=== PATIENT | male | born 1975 | race Caucasian/White ===

== ENCOUNTER 2018-09-16 20:33 | Emergency (ER) | payer MEDICAID, OTHER ==
--- NOTE | 2018-09-16 21:10 | ED Physician Documentation ---
History of Present Illness - Stated complaint Stated Complaint: SWOLLEN FOOT - Chief complaint Chief Complaint: Ext Problem - History obtained from History obtained from: Patient, Family - History of Present Illness Timing: How many days ago (4) - Additonal information Additional information: 42-year old male previously well was wearing a pair of work boots when he stepped on a fresh nail at the work site. He states he had to pull the nail out of his boot and it was deeply embedded into the distal portion of his foot. He continued to work and he has continued to ambulate until yesterday when swelling increased pain increased and today he is having a lot of trouble walking because of the pain and swelling. He comes now to the emergency department with a swollen left foot and a distal sole puncture wound between metatarsals #2 and 3. He has swelling up to the high portion of his ankle with some erythema and no lymphangitic streaking or fever. He has had a prior deep space infection in the finger. Review of Systems Constitutional: denies: Fever, Chills Eyes: denies: Decreased vision Ears: denies: Ear pain Nose: denies: Congestion Respiratory: denies: Dyspnea, Cough GI: denies: Vomiting Skin: denies: Rash Musculoskeletal: reports: Extremity pain, Extremity swelling, Pain with weight bearing. denies: Neck pain, Back pain Neurologic: denies: Generalized weakness, Focal weakness, Numbness PD PAST MEDICAL HISTORY - Past Medical History Past Medical History: Yes Cardiovascular: None Respiratory: None Neuro: None Endocrine/Autoimmune: None GI: None : None HEENT: None Psych: None Musculoskeletal: None Derm: None - Past Surgical History Past Surgical History: Yes Ortho: Other - Present Medications Home Medications: Ambulatory Orders Medication Instructions Recorded Confirmed Clindamycin HCl 300 mg PO Q6H #19 capsule 05/18/13 Oxycodone HCl/Acetaminophen 1 each PO TID PRN #20 tablet 05/18/13 [Oxycodone-Acetaminophen 10-325] Ciprofloxacin HCl [Cipro] 500 mg PO BID #14 tablet 09/17/18 Hydrocodone/Acetaminophen 1 - 2 each PO Q6H PRN #14 tablet 09/17/18 [Hydrocodon-Acetaminophen 5-325] Sulfamethoxazole/Trimethoprim 1 each PO BID #14 tablet 09/17/18 [Sulfamethoxazole-Tmp Ds Tablet] - Allergies Allergies/Adverse Reactions: Allergies Allergy/AdvReac Type Severity Reaction Status Date / Time Penicillins AdvReac Intermediate Rash Verified 05/17/13 23:17 - Social History Does the pt smoke?: Yes Smoking Status: Current every day smoker Does the pt drink ETOH?: No Does the pt have substance abuse?: Yes Substance Use and Type: Marijuana - Immunizations Immunizations are current?: Yes - POLST Patient has POLST: No PD ED PE NORMAL - Vitals Vital signs reviewed: Yes (afebrile and hypertensive ) - General General: Alert and oriented X 3, No acute distress, Well developed/nourished - HEENT HEENT: Atraumatic, PERRL, EOMI - Neck Neck: Supple, no meningeal sign - Respiratory Respiratory: No respiratory distress - Derm Derm: Normal color, Warm and dry, No rash - Extremities Extremities: Other (The left foot is markedly swollen. The PW site is over the distal #2/3 metatarsal area and the wound is non-disript appears healed/sealed. There is tenderness to the PW site swelling of the dorsum of the foot and the swelling encompasses the entire foot to the distal calf with mild erythema and warmth. distal n/v is intact. ) - Neuro Neuro: Alert and oriented X 3, coarse wire drawer 2-12 intact, No motor deficit, No sensory deficit, Normal speech Eye Opening: Spontaneous Motor: Obeys Commands Verbal: Oriented GCS Score: 15 - Psych Psych: Normal mood, Normal affect Results - Vitals Vitals: Vital Signs - 24 hr 09/16/18 20:39 Temperature 37.0 C Heart Rate 95 Respiratory 16 Rate Blood Pressure 151/73 H O2 Saturation 98 Oxygen O2 Source Room air - Labs Labs: Laboratory Tests 09/16/18 09/16/18 09/16/18 21:10 21:10 21:10 WBC 7.8 RBC 4.20 L Hgb 13.0 L Hct 40.0 L MCV 95.2 H MCH 31.0 MCHC 32.5 RDW 12.6 Plt Count 246 MPV 8.7 Neut # (Auto) 4.3 Lymph # (Auto) 2.8 [place] # (Auto) 0.5 Eos # (Auto) 0.2 Baso # (Auto) 0.0 Absolute Nucleated RBC 0.00 Nucleated RBC % 0.0 ESR 19 H Sodium 139 Potassium 3.8 Chloride 108 Carbon Dioxide 22 Anion Gap 9.0 BUN 23 H Creatinine 1.0 Estimated GFR (MDRD) 82 L Glucose 104 H Calcium 9.2 Total Bilirubin 0.5 AST 18 ALT 20 Alkaline Phosphatase 50 Total Protein 7.2 Albumin 3.8 Globulin 3.4 Albumin/Globulin Ratio 1.1 Lipase 43 - Rads (name of study) foot Radiology: Prelim report reviewed (Impression: No acute radiographic abnormalities.), EMP read indepedently, See rad report PD MEDICAL DECISION MAKING - ED course Complexity details: reviewed old records, reviewed results, re-evaluated patient, considered differential, d/w patient, d/w family Departure - Departure Disposition: 01 Home, Self Care Clinical Impression: Puncture wound of plantar aspect of left foot with infection Qualifiers: Encounter type: initial encounter Qualified Code(s): S91.332A - Puncture wound without foreign body, left foot, initial encounter Condition: Stable Instructions: ED Wound Puncture Foot Follow-Up: [facility] [Provider Group] Prescriptions: Ciprofloxacin HCl [Cipro] 500 mg PO BID #14 tablet Hydrocodone/Acetaminophen [Hydrocodon-Acetaminophen 5-325] 1 - 2 each PO Q6H PRN #14 tablet PRN Reason: pain Sulfamethoxazole/Trimethoprim [Sulfamethoxazole-Tmp Ds Tablet] 1 each PO BID #14 tablet Forms: Activity restrictions
[2018-09-16] MEDS ORDERED: TETANUS/DIPHTHERIA/PERTUSSIS 0.5 ML SYRINGE IM ONE (21:15)
[2018-09-16 21:17] LABS: BASOPHILS % (AUTO) 0.4 %; EOSINOPHILS # (AUTO) 0.2 10^3/uL (0.0-0.7); EOSINOPHILS % (AUTO) 2.8 %; LYMPHOCYTES # (AUTO) 2.8 10^3/uL (1.5-3.5); LYMPHOCYTES % (AUTO) 35.8 %; MEAN CORPUSCULAR HGB CONC 32.5 g/dL (32.0-36.0); MEAN CORPUSCULAR VOLUME 95.2 fL (80.0-94.0); MEAN PLATELET VOLUME 8.7 fL (7.4-11.4); MONOCYTES # (AUTO) 0.5 10^3/uL (0.0-1.0); NEUTROPHILS # (AUTO) 4.3 10^3/uL (1.5-6.6); NEUTROPHILS % (AUTO) 54.6 %; PLT - PLATELET COUNT 246 10^3/uL (130-450); RED CELL DISTRIBUTION WIDTH 12.6 % (12.0-15.0); WHITE BLOOD COUNT 7.8 x10^3/uL (4.8-10.8)
[2018-09-16 21:31] LABS: ALBUMIN 3.8 g/dL (3.2-5.5); ALBUMIN/GLOBULIN RATIO 1.1 (1.0-2.2); BILIRUBIN,TOTAL 0.5 mg/dL (0.2-1.0); CALCIUM 9.2 mg/dL (8.5-10.3); TOTAL PROTEIN 7.2 g/dL (6.7-8.2)
[2018-09-16] MEDS ORDERED: CEFEPIME 1 GM in SODIUM CHLORIDE 0.9% MINIBAG 100 ML IV STA (21:56)
[2018-09-16] MEDS ORDERED: VANCOMYCIN INJ 1 GM in SODIUM CHLORIDE 0.9% 500 ML IV STA (21:57)
--- NOTE | 2018-09-16 22:03 | XRAY Report ---
Reason: PW distal 2/3 MT w swelling/infection Procedure Date: 09/16/2018 Accession Number: [id number] / [id number] Procedure: XR - Foot 3 View LT CPT Code: FULL RESULT: EXAM: LEFT FOOT RADIOGRAPHY EXAM DATE: 09/16/2018 09:24 PM. CLINICAL HISTORY: PW distal 2/3 MT w swelling/infection. COMPARISON: None. TECHNIQUE: 3 views. FINDINGS: Bones: No acute fractures or suspicious bone lesions. Joints: No subluxations. Soft Tissues: Unremarkable. IMPRESSION: No acute radiographic abnormalities. RADIA
[2018-09-16] MEDS ORDERED: VANCOMYCIN 1 GM VIAL ONE (22:24)
[2018-09-16] MEDS ORDERED: HYDROcod/ACETAM 5/325 MG TABLET PO STA (23:48)
[2018-09-17] MEDS ORDERED: HYDROcod/ACET 5/325 Prepack 4 PO STA (00:48)
[2018-09-17 01:24] VITALS: BP 132/85
== END 2018-09-17 01:20 | disposition home or self-care (01) ==
LOC: ED 20:33
DX: S91.332A Puncture wound without foreign body, left foot, initial encounter (principal); L08.9 Local infection of the skin and subcutaneous tissue, unspecified; W45.0XXA Nail entering through skin, initial encounter; Y99.0 Civilian activity done for income or pay; F17.200 Nicotine dependence, unspecified, uncomplicated
CPT/HCPCS: 36415; 73630; 80053; 83690; 85025; 85651; 87040; 90471; 90715; 96365; 96366; 96367; 99283; A9270

== ENCOUNTER 2021-07-02 21:33 | Emergency (ER) | payer MEDICAID, OTHER ==
[2021-07-02] MEDS ORDERED: KETOROLAC 30 MG/ML VIAL IVP STA (22:50)
[2021-07-02] MEDS ORDERED: ONDANSETRON 4 MG/2 ML VIAL IVP STA (22:50)
[2021-07-02] MEDS ORDERED: SODIUM CHLORIDE 0.9% 1,000 ML IV STA (22:50)
[2021-07-02 23:14] LABS: BASOPHILS % (AUTO) 0.3 %; EOSINOPHILS # (AUTO) 0.1 10^3/uL (0.0-0.7); EOSINOPHILS % (AUTO) 1.6 %; HCT - HEMATOCRIT 40.5 % (42.0-52.0); HGB - HEMOGLOBIN 13.9 g/dL (14.0-18.0); LYMPHOCYTES # (AUTO) 1.6 10^3/uL (1.5-3.5); LYMPHOCYTES % (AUTO) 25.8 %; MEAN CORPUSCULAR HEMOGLOBIN 31.4 pg (27.0-31.0); MEAN CORPUSCULAR HGB CONC 34.3 g/dL (32.0-36.0); MEAN CORPUSCULAR VOLUME 91.6 fL (80.0-94.0); MEAN PLATELET VOLUME 8.5 fL (7.4-11.4); MONOCYTES # (AUTO) 0.5 10^3/uL (0.0-1.0); MONOCYTES % (AUTO) 7.2 %; NEUTROPHILS # (AUTO) 4.1 10^3/uL (1.5-6.6); NEUTROPHILS % (AUTO) 64.9 %; PLT - PLATELET COUNT 206 10^3/uL (130-450); RED BLOOD COUNT 4.42 10^6/uL (4.70-6.10); RED CELL DISTRIBUTION WIDTH 12.1 % (12.0-15.0); WHITE BLOOD COUNT 6.3 x10^3/uL (4.8-10.8)
[2021-07-02 23:27] LABS: ALBUMIN 4.1 g/dL (3.2-5.5); ALBUMIN/GLOBULIN RATIO 1.4 (1.0-2.2); BILIRUBIN,TOTAL 0.9 mg/dL (0.2-1.0); CREATININE 0.8 mg/dL (0.6-1.2); POTASSIUM 3.9 mmol/L (3.5-5.0)
--- NOTE | 2021-07-03 00:01 | ED Physician Documentation ---
History of Present Illness - Stated complaint Stated Complaint: FEVER/HEADACHE/TOOTHACHE/VOMIT - Chief complaint Chief Complaint: General - History obtained from History obtained from: Patient, Family (Patient's ) - Additonal information Additional information: Patient is a previously healthy 45-year-old male presenting for evaluation of fever and right-sided headache for 4 days with nausea and vomiting. He denies a history of migraines. The headache started slowly 4 days ago and is progressively become worse. He denies exertion At onset or thunderclap headache. It is sharp and throbbing. Lights make it worse. He does report associated nausea and vomiting. He has had fever up to 102. He reports feeling congestion. He also reports that the headache is making his dental pain feel w orse.He has taken a negative Covid test at home. He denies known sick contacts. He denies cough, chest pain, difficulty breathing, abdominal pain, diarrhea, dysuria.He has been using ibuprofen with some relief. Review of Systems Constitutional: reports: Fever Nose: reports: Congestion Throat: reports: Dental pain / toothache Cardiac: denies: Chest pain / pressure Respiratory: denies: Dyspnea, Cough GI: reports: Nausea, Vomiting. denies: Abdominal Pain : denies: Dysuria Skin: denies: Rash Musculoskeletal: denies: Neck pain, Back pain Neurologic: reports: Headache. denies: Syncope, Head injury PD PAST MEDICAL HISTORY - Past Medical History Past Medical History: No Cardiovascular: None Respiratory: None Neuro: None Endocrine/Autoimmune: None GI: None : None HEENT: None Psych: None Musculoskeletal: None Derm: None - Past Surgical History Past Surgical History: Yes Ortho: Other - Present Medications Home Medications: Ambulatory Orders Medication Instructions Recorded Confirmed Ibuprofen [Motrin] 800 mg PO Q8H PRN #20 tablet 07/03/21 Ondansetron Odt [Zofran] 4 mg TL Q6H PRN #10 tablet 07/03/21 - Allergies Allergies/Adverse Reactions: Allergies Allergy/AdvReac Type Severity Reaction Status Date / Time Penicillins AdvReac Intermediate Rash Verified 07/02/21 21:46 - Social History Does the pt smoke?: Yes Smoking Status: Current every day smoker Does the pt drink ETOH?: No Does the pt have substance abuse?: Yes - Immunizations Immunizations are current?: Yes - POLST Patient has POLST: No PD ED PE NORMAL - General General: Alert and oriented X 3, No acute distress, Well developed/nourished - HEENT HEENT: Atraumatic, PERRL, EOMI, Moist mucous membranes, Pharynx benign, Other (Multiple teeth with evidence of decay, No tenderness on palpation,no abscess, nor oral swelling) - Cardiac Cardiac: RRR, No murmur, Strong equal pulses - Respiratory Respiratory: No respiratory distress, Clear bilaterally - Abdomen Abdomen: Normal bowel sounds, Soft, Non tender - Back Back: No CVA TTP, No spinal TTP - Derm Derm: Normal color, Warm and dry, No rash - Extremities Extremities: No deformity, No edema - Neuro Neuro: Alert and oriented X 3, desktop engineer 2-12 intact, No motor deficit, No sensory deficit, Normal speech Eye Opening: Spontaneous Motor: Obeys Commands Verbal: Oriented GCS Score: 15 - Psych Psych: Normal mood, Normal affect Results - Vitals Vitals: Vital Signs - 24 hr 07/02/21 07/02/21 07/03/21 21:40 23:28 00:21 Temperature 36.7 C 36.3 C L 36.1 C L Heart Rate 66 71 82 Respiratory 17 16 16 Rate Blood Pressure 123/70 126/81 H 109/72 O2 Saturation 98 100 99 Oxygen O2 Source Room air - Labs Labs: Laboratory Tests 07/02/21 07/02/21 23:06 23:06 WBC 6.3 RBC 4.42 L Hgb 13.9 L Hct 40.5 L MCV 91.6 MCH 31.4 H MCHC 34.3 RDW 12.1 Plt Count 206 MPV 8.5 Neut # (Auto) 4.1 Lymph # (Auto) 1.6 [place] # (Auto) 0.5 Eos # (Auto) 0.1 Baso # (Auto) 0.0 Absolute Nucleated RBC 0.00 Nucleated RBC % 0.0 Sodium 134 L Potassium 3.9 Chloride 103 Carbon Dioxide 22 Anion Gap 9.0 BUN 18 Creatinine 0.8 Estimated GFR (MDRD) 104 Glucose 109 H Calcium 9.0 Total Bilirubin 0.9 AST 20 ALT 19 Alkaline Phosphatase 47 Total Protein 7.0 Albumin 4.1 Globulin 2.9 Albumin/Globulin Ratio 1.4 Lipase 32 PD MEDICAL DECISION MAKING - ED course Complexity details: reviewed results, d/w patient, d/w family ED course: Patient presenting for evaluation of fever and right-sided headache. He is afebrile here but has been using Motrin throughout the day. On initial exam he is overall well-appearing with a normal neurologic exam. History does not suggest a subarachnoid hemorrhage or intracranial bleed. Exam is also reassuring with no signs of meningismus. Do not think neuroimaging is warranted currently based on his history and presentation. Given history of emesis I did obtain labs which were overall unremarkable. Patient did receive medications for his headache and did have symptom improvement. Covid test was obtained and results are pending. Patient and his are aware of strict return precautions for any worsening of his symptoms. 2359- Patient is feeling better,Reviewed results with patient and his . Departure - Departure Disposition: 01 Home, Self Care Clinical Impression: Headache Qualifiers: Headache type: unspecified Headache chronicity pattern: acute headache Intractability: not intractable Qualified Code(s): R51.9 - Headache, unspecified Nausea & vomiting Qualifiers: Vomiting type: unspecified Qualified Code(s): R11.2 - Nausea with vomiting, unspecified Condition: Stable Instructions: ED Cephalgia Unspecified, ED Nausea Vomiting Prescriptions: Ibuprofen [Motrin] 800 mg PO Q8H PRN #20 tablet PRN Reason: PAIN &/OR FEVER Ondansetron Odt [Zofran] 4 mg TL Q6H PRN #10 tablet PRN Reason: Nausea / Vomiting Comments: You were evaluated for a headache, vomiting and overall body pain. You had labs done which did not have any significant abnormalities. You were given IV fluids and medications to help you with your symptoms. You also had a Covid test which was done but not yet resulted. If it is abnormal we will give you a phone call.Your symptoms did improve with treatment in the emergency department. I have sent prescriptions for Motrin and Zofran which is a nausea medication to the [facility] pharmacy in [place]. If your symptoms feel that they are getting worse such as worsening headache, vomiting, pain, trouble breathing then please return to the emergency department. Otherwise please follow-up with your primary care doctor next week. Discharge Date/Time: 07/03/21 00:26
[2021-07-03 00:24] VITALS: BP 109/72
== END 2021-07-03 00:26 | disposition home or self-care (01) ==
LOC: ED 21:33
DX: R51.9 Headache, unspecified (principal); R11.2 Nausea with vomiting, unspecified; F17.200 Nicotine dependence, unspecified, uncomplicated; Z20.822 Contact with and (suspected) exposure to COVID-19
CPT/HCPCS: 36415; 80053; 83690; 85025; 96361; 96374; 96375; 99282

== ENCOUNTER 2021-07-06 15:36 | Emergency (ER) | payer MEDICAID ==
--- OUTSIDE RECORDS SUMMARY | 2021-07-06 16:01 | EXTERNAL MEDICAL SUMMARY RPT | Continuity of Care Document ---
:1975 Author Organization [facility] Address [address] [place] [address] Phone Care Team Providers Name Role Phone Jeovanny Unavailable Unavailable Allergies No information. Encounters No information. Medications date description facility [id number] sildenafil All Problems date description facility 20210524 Total score? All 20210524 Tobacco use and exposure All 20210524 Male erectile dysfunction, unspecified All 20210524 Impotence of organic origin All 20210524 Erectile dysfunction All 20210524 Details of drug misuse behavior All 20210524 Current every day smoker All 20210524 Alcohol use All Results test status date ordered by attending specimen jd e _2019NCoV_COVID-19_Lab unknown 20210703 unknown unknown unknown _Test_Result_Text_ COVID-19_REFERENCE_TES unknown [id number] unknown unknown unknown T T unknown 08896356 unknown unknown unknown urea_nitrogen_blood unknown 72418232 unknown unknown unk nown Erythrocytes_volume_in unknown 05606053 unknown unknown unknown _Blood_by_Automated_cou nt Erythrocyte_distributi unknown 70685747 unknown unknown unknown on_width_Ratio_by_Autom ated_count MCV_Entitic_volume_by_ unknown 44375601 unknown unknown unknown Automated_count MCH_Entitic_mass_by_Au unknown 49786680 unknown unknown unknown tomated_count Platelets_volume_in_Bl unknown 78245427 unknown unknown unknown ood_by_Automated_count Platelet_mean_volume_E unknown 46730696 unknown unknown unknown ntitic_volume_in_Blood_ by_Re[place] neutrophil_count_blood unknown 49096483 unknown unknown unknown monocyte_count_blood unknown 33569618 unknown unknown un known lymphocyte_count_blood unknown 16706836 unknown unknown unknown Hemoglobin_Mass_volume unknown 73894226 unknown unknown unknown _in_Blood eosinophil_count_blood unknown 54434628 unknown unknown unknown Basophils_volume_in_Bl unknown 68470452 unknown unknown unknown ood_by_Manual_count leukocyte_count_blood unknown 18223784 unknown unknown u nknown erythrocyte_RBC_count unknown 95321913 unknown unknown u nknown Leukocytes_volume_in_B unknown 82688663 unknown unknown unknown lood_by_Automated_count Glomerular_Filtration_ unknown 95182522 unknown unknown unknown rate platelet_count unknown 67563736 unknown unknown unknown hemoglobin_blood unknown 08609121 unknown unknown unknow n hematocrit_blood unknown 19139523 unknown unknown unknow n potassium_blood unknown 79597861 unknown unknown unknown Glomerular_filtration_r unknown 29622211 unknown unknown unknown ate_1.73_sq_M.predicted _among_non-blacks_Volum e_Rate_Area_in_Serum_Pl asma_or_Blood_by_Creati nine-based_formula_MDRD _ Hematocrit_Volume_Frac unknown 91682767 unknown unknown unknown tion_of_Blood_by_Automa ted_count bilirubin_serum_total unknown 24565759 unknown unknown u nknown alanine_aminotransfera unknown 85658524 unknown unknown unknown se_SGPT_serum carbon_dioxide_serum_t unknown 79280752 unknown unknown unknown otal aspartate_aminotransfe unknown 91248230 unknown unknown unknown rase_SGOT_serum protein_total_serum unknown 58803956 unknown unknown unk nown blood_glucose unknown 77989085 unknown unknown unknown potassium_blood unknown 58602930 unknown unknown unknown mean_corpuscular_volum unknown 44657154 unknown unknown unknown e_RBC Urea_nitrogen_Mass_vol unknown 46152916 unknown unknown unknown ume_in_Serum_or_Plasma globulin_serum unknown 35635585 unknown unknown unknown alkaline_phosphatase_s unknown 17418050 unknown unknown unknown stepan Sodium_Moles_volume_in unknown 52394399 unknown unknown unknown _Serum_or_Plasma Protein_Mass_volume_in unknown 10546491 unknown unknown unknown _Serum_or_Plasma eosinophil_count_blood unknown 76517362 unknown unknown unknown anion_gap_serum unknown 45104523 unknown unknown unknown mean_platelet_volume unknown 47283383 unknown unknown un known basophil_count_blood unknown 56303099 unknown unknown un known monocyte_count_blood unknown 78953879 unknown unknown un known lymphocyte_count_blood unknown 85495284 unknown unknown unknown neutrophil_count_blood unknown 37307004 unknown unknown unknown Glucose_Mass_volume_in unknown 31194100 unknown unknown unknown _Serum_or_Plasma Globulin_Mass_volume_i unknown 18184692 unknown unknown unknown n_Serum Creatinine_Mass_volume unknown 80286766 unknown unknown unknown _in_Serum_or_Plasma Chloride_Moles_volume_ unknown 08306561 unknown unknown unknown in_Serum_or_Plasma carbon_dioxide_serum_t unknown 12686414 unknown unknown unknown otal Calcium_Moles_volume_i unknown 10185365 unknown unknown unknown n_Serum_or_Plasma albumin_serum unknown 26981416 unknown unknown unknown Bilirubin.total_Mass_v unknown 47203857 unknown unknown unknown olume_in_Serum_or_Plasm a Aspartate_aminotransfe unknown 42712763 unknown unknown unknown rase_Enzymatic_activity _volume_in_Serum_or_Pla sma Anion_gap_4_in_Serum_o unknown 05631223 unknown unknown unknown r_Plasma creatinine_serum unknown 88504105 unknown unknown unknow n Alkaline_phosphatase_E unknown 36038717 unknown unknown unknown nzymatic_activity_volum e_in_Blood Albumin_Globulin_Mass_ unknown 45584864 unknown unknown unknown Ratio_in_Serum_or_Plasm a Albumin_Mass_volume_in unknown 71403019 unknown unknown unknown _Serum_or_Plasma Alanine_aminotransfera unknown 03386056 unknown unknown unknown se_Enzymatic_activity_v olume_in_Serum_or_Plasm a mean_corpuscular_hemog unknown 79495509 unknown unknown unknown lobin_concentration_rbc sodium_serum unknown 57168413 unknown unknown unknown albumin_globulin_ratio unknown 26823082 unknown unknown unknown _serum chloride_serum unknown 41165054 unknown unknown unknown calcium_serum unknown 82551872 unknown unknown unknown mean_corpuscular_hemog unknown 61960115 unknown unknown unknown lobin_RBC red_blood_cell_distrib unknown 43130634 unknown unknown unknown ution_width T unknown 51339101 unknown unknown unknown T unknown 80623716 unknown unknown unknown T unknown 23564236 unknown unknown unknown T unknown 88864577 unknown unknown unknown T unknown 64481144 unknown unknown unknown T unknown 18873646 unknown unknown unknown NEUTROPHILS_AUTO_ unknown 37380010 unknown unknown unkno wn T unknown 68387462 unknown unknown unknown T unknown 41981154 unknown unknown unknown T unknown 95323835 unknown unknown unknown MONOCYTES_AUTO_ unknown 11548885 unknown unknown unknown T unknown 58479854 unknown unknown unknown T unknown 20362211 unknown unknown unknown T unknown 33260851 unknown unknown unknown T unknown 83996020 unknown unknown unknown LYMPHOCYTES_AUTO_ unknown 70034993 unknown unknown unkno wn T unknown 83312601 unknown unknown unknown T unknown 42137804 unknown unknown unknown T unknown 40159640 unknown unknown unknown T unknown 97371177 unknown unknown unknown T unknown 53558515 unknown unknown unknown T unknown 02139795 unknown unknown unknown T unknown 91832764 unknown unknown unknown GFR_-_MDRD unknown 25423913 unknown unknown unknown T unknown 68540472 unknown unknown unknown EOSINOPHILS_AUTO_ unknown 49494513 unknown unknown unkno wn T unknown 77184365 unknown unknown unknown T unknown 87875861 unknown unknown unknown T unknown 68446482 unknown unknown unknown T unknown 28854344 unknown unknown unknown T unknown 92542614 unknown unknown unknown T unknown 89805200 unknown unknown unknown BILIRUBIN_TOTAL unknown 62758298 unknown unknown unknown BASOPHILS_AUTO_ unknown 53287245 unknown unknown unknown T unknown 16001851 unknown unknown unknown T unknown 73663472 unknown unknown unknown T unknown 03149210 unknown unknown unknown T unknown 15668731 unknown unknown unknown ALT_ALANINE_AMINOTRANS unknown 78037820 unknown unknown unknown FERASE ALKALINE_PHOSPHATASE unknown 35018213 unknown unknown un known T unknown 39867143 unknown unknown unknown T unknown 16949799 unknown unknown unknown ALBUMIN_GLOBULIN_RATIO unknown 17171479 unknown unknown unknown facility observation status value reference units lab abnor mal line range code notes All _2019NCoV_CO unknown NEGATIVE unknown _665997 unkn own unknown VID-19_Lab_Te st_Result_Tex t_ All COVID-19_REF unknown NEGATIVE unknown COVID19 unkn own unknown ERENCE_TEST .REF All T unknown NEGATIVE unknown COVID-1 unknown u nknown 9 All urea_nitroge unknown 18 unknown mg/dL _9 unknown unknown n_blood All Erythrocytes unknown 4.42 10 unknown _789-8 unknow n unknown _volume_in_Bl 6/UL ood_by_Automa ted_count All Erythrocyte_ unknown 12.1 unknown % _788-0 unknown unknown distribution_ width_Ratio_b y_Automated_c ount All MCV_Entitic_ unknown 91.6 unknown fL _787-2 unknown unknown volume_by_Aut omated_count All MCH_Entitic_ unknown 31.4 unknown pg _785-6 unknown unknown mass_by_Autom ated_count All Platelets_vo unknown 206 10 unknown _777-3 unknown unknown lume_in_Blood 3/UL _by_Automated _count All Platelet_mea unknown 8.5 unknown fL _776-5 unknown unknown n_volume_Enti tic_volume_in _Blood_by_Ree s-Colette All neutrophil_c unknown 4.1 10 unknown _752-6 unknown unknown ount_blood 3/UL All monocyte_cou unknown 0.5 10 unknown _743-5 unknown unknown nt_blood 3/UL All lymphocyte_c unknown 1.6 10 unknown _732-8 unknown unknown ount_blood 3/UL All Hemoglobin_M unknown 13.9 unknown g/dL _718-7 unknown unknown ass_volume_in _Blood All eosinophil_c unknown 0.1 10 unknown _712-0 unknown unknown ount_blood 3/UL All Basophils_vo unknown 0.0 10 unknown _705-4 unknown unknown lume_in_Blood 3/UL _by_Manual_co unt All leukocyte_co unknown 6.3 X10 unknown _68 unknow n unknown unt_blood 3/UL All erythrocyte_ unknown 4.42 10 unknown _67 unknow n unknown RBC_count 6/UL All Leukocytes_v unknown 6.3 X10 unknown _6690-2 unkno wn unknown olume_in_Bloo 3/UL d_by_Automate d_count All Glomerular_F unknown 104 unknown mL/min _66455 unknown unknown iltration_rat e All platelet_cou unknown 206 10 unknown _66 unknown unknown nt 3/UL All hemoglobin_b unknown 13.9 unknown g/dL _65 unknown unknown lood All hematocrit_b unknown 40.5 unknown % _64 unknown unknown lood All potassium_bl unknown 3.9 unknown meq/L _6298-4 unknow n unknown ood All Glomerular_fi unknown 104 unknown mL/min _48642- unknow n unknown ltration_rate 3 _1.73_sq_M.pr edicted_among _non-blacks_V olume_Rate_Ar ea_in_Serum_P lasma_or_Bloo d_by_Creatini ne-based_form ula_MDRD_ All Hematocrit_V unknown 40.5 unknown % _4544-3 unknow n unknown olume_Fractio n_of_Blood_by _Automated_co unt All bilirubin_se unknown 0.9 unknown mg/dL _43 unknown unknown rum_total All alanine_amin unknown 19 unknown U/L _40 unknown unknown otransferase_ SGPT_serum All carbon_dioxi unknown 22 unknown mmol/L _3962 unknown unknown de_serum_tota l All aspartate_am unknown 20 unknown U/L _39 unknown unknown inotransferas e_SGOT_serum All protein_tota unknown 7.0 unknown g/dL _36 unknown unknown l_serum All blood_glucos unknown 109 unknown mg/dL _3565 unknown unknown e All potassium_bl unknown 3.9 unknown meq/L _3483 unknown unknown ood All mean_corpusc unknown 91.6 unknown fL _315 unknown unknown ular_volume_R BC All Urea_nitroge unknown 18 unknown mg/dL _3094-0 unknow n unknown n_Mass_volume _in_Serum_or_ Plasma All globulin_ser unknown 2.9 unknown _3059 unknown unknown um All alkaline_pho unknown 47 unknown U/L _3 unknown unknown sphatase_seru m All Sodium_Moles unknown 134 unknown mmol/L _2951-2 unknow n unknown _volume_in_Se rum_or_Plasma All Protein_Mass unknown 7.0 unknown g/dL _2885-2 unknow n unknown _volume_in_Se rum_or_Plasma All eosinophil_c unknown 0.1 10 unknown _285 unknown unknown ount_blood 3/UL All anion_gap_se unknown 9.0 unknown _279 unknown unknown rum All mean_platele unknown 8.5 unknown fL _2784 unknown unknown t_volume All basophil_cou unknown 0.0 10 unknown _2427 unknown unknown nt_blood 3/UL All monocyte_cou unknown 0.5 10 unknown _2422 unknown unknown nt_blood 3/UL All lymphocyte_c unknown 1.6 10 unknown _2420 unknown unknown ount_blood 3/UL All neutrophil_c unknown 4.1 10 unknown _2418 unknown unknown ount_blood 3/UL All Glucose_Mass unknown 109 unknown mg/dL _2345-7 unknow n unknown _volume_in_Se rum_or_Plasma All Globulin_Mas unknown 2.9 unknown _2336-6 unknow n unknown s_volume_in_S stepan All Creatinine_M unknown 0.8 unknown mg/dL _2160-0 unknow n unknown ass_volume_in _Serum_or_Pla sma All Chloride_Mol unknown 103 unknown mmol/L _2074-0 unknow n unknown es_volume_in_ Serum_or_Plas ma All carbon_dioxi unknown 22 unknown mmol/L _2027- unknow n unknown de_serum_tota l All Calcium_Mole unknown 9.0 unknown mg/dL _1999- unknow n unknown s_volume_in_S erum_or_Plasm a All albumin_seru unknown 4.1 unknown g/dL _2 unknown unknown m All Bilirubin.to unknown 0.9 unknown mg/dL _1974- unknow n unknown tal_Mass_volu me_in_Serum_o r_Plasma All Aspartate_am unknown 20 unknown U/L _1919- unknow n unknown inotransferas e_Enzymatic_a ctivity_volum e_in_Serum_or _Plasma All Anion_gap_4_ unknown 9.0 unknown _1863-0 unknow n unknown in_Serum_or_P lasma All creatinine_s unknown 0.8 unknown mg/dL _18 unknown unknown stepan All Alkaline_pho unknown 47 unknown U/L _1783-0 unknow n unknown sphatase_Enzy matic_activit y_volume_in_B lood All Albumin_Glob unknown 1.4 unknown _1759-0 unknow n unknown ulin_Mass_Rat io_in_Serum_o r_Plasma All Albumin_Mass unknown 4.1 unknown g/dL _1751-7 unknow n unknown _volume_in_Se rum_or_Plasma All Alanine_amin unknown 19 unknown U/L _1742-6 unknow n unknown otransferase_ Enzymatic_act ivity_volume_ in_Serum_or_P lasma All mean_corpusc unknown 34.3 unknown g/dL _17029 unknown unknown ular_hemoglob in_concentrat ion_rbc All sodium_serum unknown 134 unknown mmol/L _159 unknown unknown All albumin_glob unknown 1.4 unknown _146 unknown unknown ulin_ratio_se rum All chloride_ser unknown 103 unknown mmol/L _13 unknown unknown um All calcium_seru unknown 9.0 unknown mg/dL _11 unknown unknown m All mean_corpusc unknown 31.4 unknown pg _1031 unknown unknown ular_hemoglob in_RBC All red_blood_ce unknown 12.1 unknown % _1030 unknown unknown ll_distributi on_width All T unknown 6.3 X10 unknown WBC unknown unk nown 3/UL All T unknown 0.9 unknown mg/dL TOTAL_B unknown unk nown SHERRIE All T unknown 12.1 unknown % RDW unknown unkn own All T unknown 4.42 10 unknown RBC unknown unk nown 6/UL All T unknown 7.0 unknown g/dL PRO_TOT unknown unk nown AL All T unknown 206 10 unknown PLT unknown unkn own 3/UL All NEUTROPHILS_ unknown 4.1 10 unknown NE_ unknown unknown AUTO_ 3/UL All T unknown 4.1 10 unknown NEUT_AU unknown unk nown 3/UL TO_ All T unknown 134 unknown mmol/L NA unknown unkn own All T unknown 8.5 unknown fL MPV unknown unkn own All MONOCYTES_AU unknown 0.5 10 unknown MO_ unknown unknown TO_ 3/UL All T unknown 0.5 10 unknown MONO_AU unknown unk nown 3/UL TO_ All T unknown 91.6 unknown fL MCV unknown unkn own All T unknown 34.3 unknown g/dL MCHC unknown unkn own All T unknown 31.4 unknown pg MCH unknown unkn own All LYMPHOCYTES_ unknown 1.6 10 unknown LY_ unknown unknown AUTO_ 3/UL All T unknown 1.6 10 unknown LYMPH_A unknown unk nown 3/UL UTO_ All T unknown 3.9 unknown meq/L K unknown unkn own All T unknown 13.9 unknown g/dL HGB unknown unkn own All T unknown 40.5 unknown % HCT unknown unkn own All T unknown 109 unknown mg/dL GLU unknown unkn own All T unknown 2.9 unknown GLOB unknown unkn own All T unknown 104 unknown mL/min GFR_-_M unknown unk nown DRD All GFR_-_MDRD unknown 104 unknown mL/min GFR unknown unknown All T unknown 9.0 unknown GAP unknown unkn own All EOSINOPHILS_ unknown 0.1 10 unknown EO_ unknown unknown AUTO_ 3/UL All T unknown 0.1 10 unknown EOS_AUT unknown unk nown 3/UL O_ All T unknown 0.8 unknown mg/dL CREAT unknown unkn own All T unknown 22 unknown mmol/L CO2 unknown unkn own All T unknown 103 unknown mmol/L CL unknown unkn own All T unknown 9.0 unknown mg/dL CA unknown unkn own All T unknown 18 unknown mg/dL BUN unknown unkn own All BILIRUBIN_TO unknown 0.9 unknown mg/dL BILIT unknown unknown ELEANOR All BASOPHILS_AU unknown 0.0 10 unknown BA_ unknown unknown TO_ 3/UL All T unknown 0.0 10 unknown BASO_AU unknown unk nown 3/UL TO_ All T unknown 1.4 unknown A_G_RAT unknown unk nown IO All T unknown 20 unknown U/L AST unknown unkn own All T unknown 19 unknown U/L ALT_SGP unknown unk nown T_ All ALT_ALANINE_ unknown 19 unknown U/L ALT unknown unknown AMINOTRANSFER ASE All ALKALINE_PHO unknown 47 unknown U/L ALP unknown unknown SPHATASE All T unknown 47 unknown U/L ALK_PHO unknown unk nown S All T unknown 4.1 unknown g/dL ALB unknown unkn own All ALBUMIN_GLOB unknown 1.4 unknown AGRATIO unknow n unknown ULIN_RATIO Vital Signs date measurement value source 20210524 weight_standard 218 lb 20210524 weight_metric 98.88 kg 20210524 temperature_standard 97.3 F 20210524 temperature_metric 36.28 C 20210524 respiration_rate 14 /min 20210524 height_standard 71.5 in 20210524 height_metric 181.61 cm 20210524 heart_rate 76 /min 20210524 BP_systolic 132 mm[Hg] 20210524 BP_diastolic 99 mm[Hg] 20210524 BMI 30.09 kg/m2
--- NOTE | 2021-07-06 16:53 | ED Physician Documentation ---
PD HPI HEADACHE - Stated complaint Stated Complaint: HEADACHE/LT ARM NUM/LT EYE BLIND/NAUSEA - Chief complaint Chief Complaint: Neuro - History obtained from History obtained from: Patient - History of Present Illness Timing - onset: How many days ago (8-9) Timing - onset during: Light activity Timing - duration: Days (5) Timing - details: Gradual onset (initially feeling like viral illness and has had persistent nausea and headache.), Still present, Waxing and waning Worst headache ever?: Worst headache ever? Location: Front, Left Quality: Throbbing, Aching Associated symptoms: Fever (initially ill with fever, congestion, nausea, malaise, with much of that improved, but persistent headache, nausea, and is now also light sensitive.), Nausea, Vomiting, Vision changes (blurred left eye at times). No: Stiff neck, Eye pain Improved by: Rest. No: Meds Worsened by: Light, Noise Contributing factors: No: Anticoagulated, Recent illness, Trauma Similar symptoms before: Has not had sx before Recently seen: Emergency Dept (3 1/2 days ago and was given Rx for nausea/Ibuprofen. [place] URI.) Review of Systems Constitutional: reports: Fever (initially with feeling of fever/chills, sinus pressure, nausea, and some headache. viral symptoms improved but continues with headache/nausea.) Eyes: reports: Photophobia Ears: denies: Loss of hearing, Ear pain Nose: reports: Congestion, Sinus pressure / pain. denies: Rhinorrhea / runny nose Throat: reports: Dental pain / toothache (some in upper teeth but no gum swelling nor pain with chewing.). denies: Sore throat Respiratory: denies: Cough GI: reports: Nausea, Vomiting. denies: Diarrhea Skin: denies: Rash, Lesions Neurologic: reports: Generalized weakness, Headache. denies: Focal weakness, Numbness, Altered mental status, Head injury PD PAST MEDICAL HISTORY - Past Medical History Cardiovascular: None Respiratory: None Neuro: None Endocrine/Autoimmune: None GI: None : None HEENT: None Psych: None Musculoskeletal: None Derm: None - Past Surgical History Past Surgical History: Yes Ortho: Other - Present Medications Home Medications: Ambulatory Orders Medication Instructions Recorded Confirmed Ibuprofen [Motrin] 800 mg PO Q8H PRN #20 tablet 07/03/21 07/06/21 Ondansetron Odt [Zofran] 4 mg TL Q6H PRN #10 tablet 07/03/21 07/06/21 Buprenorphine HCl/Naloxone HCl 1 film SL DAILY 07/06/21 07/06/21 [Suboxone 8 mg-2 mg Sl Film] Escitalopram Oxalate 30 mg PO DAILY 07/06/21 07/06/21 HYDROcod/ACETAM 5/325 [Picher 5/325] 1 ea PO Q6H PRN #12 tablet 07/06/21 Ondansetron Odt [Zofran] 4 mg TL Q6H PRN #10 tablet 07/06/21 Sildenafil Citrate [Viagra] 50 mg PO DAILY PRN 07/06/21 07/06/21 Trazodone HCl 100 mg PO HS 07/06/21 07/06/21 dexAMETHasone [Decadron] 4 mg PO DAILY #5 tablet 07/06/21 hydrOXYzine HCL [Hydroxyzine HCl] 25 mg PO BID PRN 07/06/21 07/06/21 - Allergies Allergies/Adverse Reactions: Allergies Allergy/AdvReac Type Severity Reaction Status Date / Time Penicillins AdvReac Intermediate Rash Verified 07/06/21 15:48 - Social History Does the pt smoke?: Yes Smoking Status: Current every day smoker Does the pt drink ETOH?: No Does the pt have substance abuse?: Yes - Immunizations Immunizations are current?: Yes - POLST Patient has POLST: No PD ED PE NORMAL - Vitals Vital signs reviewed: Yes - General General: Alert and oriented X 3, No acute distress (he does seem somewhat uncomfortable, and is very light sensitive. MOVes head easily. NO adenopathy. ), Well developed/nourished - HEENT HEENT: Atraumatic (no noted rash. ), PERRL, EOMI, Pharynx benign, Dentition benign (no gum swelling. NO skin sensitive nor rash. ). No: Moist mucous membranes - Neck Neck: Supple, no meningeal sign, No adenopathy - Cardiac Cardiac: RRR, No murmur - Respiratory Respiratory: Clear bilaterally - Abdomen Abdomen: Soft, Non tender - Back Back: No CVA TTP - Derm Derm: Normal color, Warm and dry, No rash - Extremities Extremities: Normal ROM s pain, No edema, No calf tenderness / cord - Neuro Neuro: Alert and oriented X 3, civil rights representative 2-12 intact, No motor deficit, No sensory deficit, Normal speech Eye Opening: Spontaneous Motor: Obeys Commands Verbal: Oriented GCS Score: 15 - Psych Psych: Normal mood Results - Vitals Vitals: Vital Signs - 24 hr 07/06/21 07/06/21 07/06/21 15:49 17:00 18:20 Temperature 36.8 C 36.3 C L Heart Rate 72 63 57 L Respiratory 18 18 16 Rate Blood Pressure 133/77 H 133/85 H O2 Saturation 99 99 98 Oxygen O2 Source Room air - Labs Labs: Laboratory Tests 07/06/21 07/06/21 17:20 17:20 ESR 7 Sodium 133 L Potassium 3.8 Chloride 100 L Carbon Dioxide 26 Anion Gap 7.0 BUN 26 H Creatinine 0.9 Estimated GFR (MDRD) 91 Glucose 96 Calcium 9.1 PD MEDICAL DECISION MAKING - ED course Complexity details: reviewed results (head CT without acute process. ), re- evaluated patient (improved and feels headache mostly gone, not nauseated, after IV fluids, Inapsine and Toradol, more c/w functional headache/migraine and dehydration. ), considered differential (headache with blurred vision left, light and noise sensitive, nauseated. Seems possible new onset migrane, though a bit older for new onset. Had URI symptoms /viral first, prior, but does not seem meningitis. GOt labs and head CT.), d/w patient Departure - Departure Disposition: 01 Home, Self Care Clinical Impression: Headache Qualifiers: Headache type: unspecified Headache chronicity pattern: acute headache Intractability: not intractable Qualified Code(s): R51.9 - Headache, unspecified Condition: Stable Record reviewed to determine appropriate education?: Yes Instructions: ED Cephalgia Unspecified, ED Headache Migraine Follow-Up: Deisi Euceda ARNP [Primary Care Provider] - Prescriptions: dexAMETHasone [Decadron] 4 mg PO DAILY #5 tablet HYDROcod/ACETAM 5/325 [Picher 5/325] 1 ea PO Q6H PRN #12 tablet PRN Reason: Pain Ondansetron Odt [Zofran] 4 mg TL Q6H PRN #10 tablet PRN Reason: Nausea / Vomiting Comments: Your head CT scan does not show any acute obvious abnormalities. Your symptoms do sound likely migraine or functional headache. It does not sound like an obvious infectious cause at this time. I would suggest treating with an anti-inflammatory of dexamethasone daily for 5 more days. Add ondansetron if needed for nausea. To that add Tylenol every 4-6 hours if needed for mild pain. I also prescribed hydrocodone/acetaminophen to use for worse headache if needed sporadically. If this is a new onset of migraine, then it may be an occasional episode similar to this in take medication if needed. Follow-up with your primary care if persistent or consistent episodes in the near future. I transmitted your prescription to [facility] pharmacy in [place]. My narcotic instructions I am prescribing a short course of narcotic pain medi cation for you. These are potentially dangerous and addictive medications that should be used carefully. These medications may constipate you. Take an [id number]-[id number] stool softener such as docusate twice daily with plenty of water while taking these medications. If you go 24 hours without a bowel movement, take [id number]-[id number] MiraLAX, per package instructions. Do not drink or drive while taking these medications. If you received narcotic or sedating medications while in the emergency department do not drive for 24 hours. Store this medication in a safe, secure place and out of reach of children. It is a violation of federal law to give or sell this medication to another person or to use in a manner other than prescribed. The ED will not refill narcotic prescriptions, including prescriptions lost or stolen. You can dispose of unwanted medications at the [facility] office or at several pharmacies such as [facility]. Discharge Date/Time: 07/06/21 18:51
[2021-07-06] MEDS ORDERED: DROPERIDOL 5 MG/2 ML VIAL IVP STA (17:08)
[2021-07-06] MEDS ORDERED: KETOROLAC 30 MG/ML VIAL IVP STA (17:08)
[2021-07-06] MEDS ORDERED: SODIUM CHLORIDE 0.9% 1,000 ML IV STA (17:08)
[2021-07-06 17:33] LABS: CALCIUM 9.1 mg/dL (8.5-10.3); CREATININE 0.9 mg/dL (0.6-1.2); POTASSIUM 3.8 mmol/L (3.5-5.0)
--- NOTE | 2021-07-06 18:01 | CT Report ---
PROCEDURE: HEAD WO INDICATIONS: headache, visual blurry 5 days TECHNIQUE: Noncontrast 4.5 mm thick angled axial sections acquired from the foramen magnum to the vertex. For r adiation dose reduction, the following was used: automated exposure control, adjustment of mA and/or kV according to patient size. COMPARISON: None. FINDINGS: Image quality: Excellent. Repeat acquisition of the skull base due to beam hardening artifact. CSF spaces: Basal cisterns are patent. No extra-axial fluid collections. Ventricles are normal in size and shape. Brain: No midline shift. No intracranial masses or hemorrhage. Goss-white matter interface is norm al. Skull and face: Calvarium and visualized facial bones are intact, without suspicious lesions. Sinuses: Visualized sinuses and mastoids are clear. IMPRESSION: No acute intracranial abnormality. Reviewed by: Trever Simons MD on 07/06/2021 6:00 PM PDT Approved by: Trever Simons MD on 07/06/2021 6:00 PM PDT Station ID: [id number]
[2021-07-06 18:21] VITALS: BP 133/85
== END 2021-07-06 18:51 | disposition home or self-care (01) ==
LOC: ED 15:36
DX: R51.9 Headache, unspecified (principal)
CPT/HCPCS: 36415; 80048; 85651; 96374; 96375; 99282

== ENCOUNTER 2022-06-26 04:29 | Emergency (ER) | payer MEDICAID ==
[2022-06-26 04:47] VITALS: BP 145/78
== END 2022-06-26 07:01 | disposition left against medical advice (07) ==
LOC: ED 04:29
DX: Z53.29 Procedure and treatment not carried out because of patient's decision for other reasons (principal)

== ENCOUNTER 2023-04-07 12:45 | Outpatient (CLI) | payer SELFPAY ==
--- NOTE | 2023-04-12 11:21 | XRAY Report ---
PROCEDURE: Hand 3+V LT INDICATIONS: CONTUSION OF LEFT HAND TECHNIQUE: 3 views of the hand(s) acquired. COMPARISON: None. FINDINGS: Bones: No fractures or dislocations. No suspicious bony lesions. Soft tissues: No suspicious soft tissue calcifications or masses. IMPRESSION: No acute bony abnormality. Reviewed by: Nick Berry MD on 04/07/2023 2:02 PM PST Approved by: Nick Berry MD on 04/07/2023 2:02 PM [facility] Station ID: [id number]
== END 2023-04-07 13:00 | disposition home or self-care (01) ==
LOC: DI.N 12:45
PROVIDERS: ATTEND Family Medicine
DX: S60.222A Contusion of left hand, initial encounter (principal)